=== PATIENT | female | born 1995 | race Two or more races ===

== ENCOUNTER 2023-10-31 09:16 | Emergency (ER) | payer OTHER ==
[~2023-10-31] VITALS: Ht 157.5 cm; Wt 65.8 kg
[2023-10-31] MEDS ORDERED: SYNTHROID75 MCG PO (09:40)
[2023-10-31] MEDS ORDERED: ONDANSETRON HCL 2 MG/ML VIAL IM ONE (10:15)
[2023-10-31] MEDS ORDERED: FAMOtidine 10 MG/ML (4ML VIAL) IV ONE (10:15)
[2023-10-31 10:24] LABS: HEMATOCRIT 42.8 % (36.0-45.00); HEMOGLOBIN 14.7 g/dL (12.0-15.00); MEAN CELL VOLUME 88.7 fL (80.00-100.00); MEAN CORPUSCULAR HEMOGLOBIN 30.4 pg (27.00-32.0); MEAN CORPUSCULAR HGB CONC 34.3 g/dl (32.0-36.0); PLATELET COUNT 271 K/uL (150-450); RED BLOOD COUNT 4.82 M/uL (4.00-6.00); RED CELL DISTRIBUTION WIDTH 13.2 % (11.5-14.5)
[2023-10-31 11:20] LABS: BILIRUBIN TOTAL 0.99 mg/dL (0.3-1.2); CALCIUM 9.4 mg/dL (8.5-10.1); CREATININE SERUM 0.9 mg/dL (0.55-1.02); GFR 75.11; GLOBULINA 4.2 G/DL (2.4-3.5); POTASSIUM 4.27 mEq/L (3.5-5.1); TOTAL PROTEIN 8.2 gm/dL (6.4-8.2)
== END 2023-10-31 12:36 | disposition home or self-care (01) ==
LOC: ER 09:17
PROVIDERS: General Practice
DX: N20.0 Calculus of kidney (principal); Z88.8 Allergy status to other drugs, medicaments and biological substances; E10.9 Type 1 diabetes mellitus without complications; E03.9 Hypothyroidism, unspecified